=== PATIENT | male | born 1945 | race Caucasian/White ===

== ENCOUNTER 2022-12-16 19:53 | Emergency (ER) | payer MEDICARE, MEDICAID, SELFPAY ==
[2022-12-16 20:15] VITALS: BP 140/79; PULSE 82; RESP 18; TEMP 37.3; O2SAT 97; BMI 19.5
[2022-12-16 22:20] VITALS: BP 142/73; PULSE 75; RESP 16; TEMP 36.7; O2SAT 97
[2022-12-16] MEDS: AMPICILLIN/SULBACTAM 3 GM 3 GM in SODIUM CHLORIDE 0.9% 100 ML IV (23:07)
--- NOTE | 2022-12-16 23:22 | ED.WOUNDLAC ---
HPI - Wound/Laceration General Chief Complaint: Wound/Laceration Stated Complaint: SOB Time Seen by Provider: 12/16/22 21:36 Source: patient and old records reviewed Mode of arrival: Wheelchair History of Present Illness HPI narrative: Patient is a 77-year-old male who presents today from rehab facility after being frightened. He had a complicated course at [facility] he had a thoracotomy right middle lobe lobectomy, intercostal nerve blocks with CT surgery, bone abscess and pneumonia. He is to be on 4-6 weeks IV antibiotics Unasyn 3 g Q 6 hours. Arrangements have been made for him to go to [facility] [place] [facility]. He was there for an hour and demanded that he leave and call the police. He has no fever chills cough shortness of breath. He has no suicidal or homicidal ideations. He just stated that there was a man there who made him feel generally unsafe. Related Data Home Medications Medication Instructions Recorded Confirmed venlafaxine 225 mg tablet,extended 225 mg PO QDAY ##0 11/05/16 12/16/22 release 24 hr ampicillin-sulbactam 3 gram 3 g IV Q6H 12/16/22 12/16/22 intravenous piggyback bupropion HCl 150 mg 24 hr tablet, 150 mg PO DAILY 12/16/22 12/16/22 extended release gabapentin 100 mg tablet 100 mg PO TID 12/16/22 12/16/22 levothyroxine 25 mcg tablet 25 mcg PO DAILY 12/16/22 12/16/22 lidocaine 4 % topical patch 1 patch topical DAILY PRN Pain 12/16/22 12/16/22 (Lidocaine Pain Relief) (Scale Score 1-3) metoprolol tartrate 25 mg tablet 12.5 mg PO BID 12/16/22 12/16/22 oxycodone 5 mg capsule 5 mg PO Q6H PRN Pain (Scale Score 12/16/22 12/16/22 7-10) sennosides 8.6 mg-docusate sodium 1 tab-cap PO BID 12/16/22 12/16/22 50 mg capsule (Senna Plus) zinc sulfate 50 mg zinc (220 mg) 50 mg PO DAILY 12/16/22 12/16/22 capsule Allergies Allergy/AdvReac Type Severity Reaction Status Date / Time No Known Drug Allergies Allergy Verified 12/16/22 21:19 Review of Systems Review of Systems ROS Unobtainable: All systems reviewed & are unremarkable except as noted in HPI and below Patient History Social History Smoking Status: Never smoker Smoking Status: Never smoker Substance Use Type: marijuana Exam Initial Vital Signs Initial Vital Signs: Vital Signs Temperature 99.2 F 12/16/22 20:15 Pulse Rate 82 12/16/22 20:15 Respiratory Rate 18 12/16/22 20:15 Blood Pressure 140/79 12/16/22 20:15 Pulse Oximetry 97 12/16/22 20:15 Oxygen Delivery Method Room Air 12/16/22 20:15 GENERAL: Thin chronically ill 77-year-old male HEENT: Head atraumatic,EOMI, pupils reactive, face symmetric, [moist] mucous membranes CARDIOVASCULAR: Regular rate and rhythm without murmurs, rubs or gallops. RESPIRATORY: Breath sounds equal bilaterally, no wheezes rales or rhonchi. ABDOMEN: Soft, nontender. Normoactive bowel sounds all 4 quadrants. No guarding or rebound. EXTREMITIES: Normal range of motion, no clubbing or edema. Neurovascularly intact NEUROLOGICAL: Alert and oriented x4. SKIN: Incision site noted on right chest no erythema no dehiscence nontender Course Orders Ordered: ED Orders 12/16/22 21:38 Consult to [employer] - Chief Communications Officer Stat Discontinued Medications Ampicillin Sodium/Sulbactam (Sodium 3 gm/ Sodium Chloride) 100 mls @ 200 mls/hr IV NOW JEFFRY Last Infusion: 12/17/22 00:29 Dose: 0 mls/hr Documented By: Admin: 12/16/22 23:07 Dose: 200 mls/hr Documented By: Oxycodone HCl (Oxycodone Ir 5 Mg Tablet) 5 mg PO NOW ONE Stop: 12/16/22 23:15 Last Admin: 12/16/22 23:24 Dose: 5 mg Documented By: Vital Signs Vital signs: Vital Signs - 8 hr 12/16/22 22:20 12/17/22 00:44 Temperature 98.1 F Pulse Rate 75 80 Respiratory Rate 16 18 Blood Pressure 142/73 H 153/77 H Pulse Oximetry 97 95 Oxygen Delivery Method Room Air Room Air MDM - Wound/Laceration MDM Narrative Medical decision making narrative: Patient is 77-year-old male with history of lung abscess and ammonia now requiring 4-6 weeks of IV antibiotics. Who was discharged from another hospital today and went to rehab facility immediately arrived and did not like it. He left and came here. He denies suicidal homicidal ideations. He is given 1 dose of Unasyn. He is afebrile and vitals are stable. Long discussion with him strongly encourage him to return back to the rehab facility where he can continue to get his IV antibiotics. However he does not feel safe there despite removing the person who was making him feel unsafe. At this time he would like to go to a hotel and ultimately back to the [facility]. He understands that setting up IV antibiotics may be extremely difficult for him. Discharge Plan Departure Patient Disposition: Home Clinical Impression: Abscess of lung Instructions: DI for Wound Infection Activity Restrictions/Additional Instructions: You are supposed to get Unasyn 3 g every 6 hours for 4-6 weeks ending on either January 07 or January 21. It is strongly recommended that you return [facility] you can continue your physical strengthening and IV antibiotics. Please follow-up with your doctors as soon as possible Return to emergency department if you should have increasing shortness of breath, fevers pain or any new or worsening symptoms Prescriptions: No Action venlafaxine 225 MG tablet extended release 24hr 225 mg PO QDAY Qty: 0 lidocaine [Lidocaine Pain Relief] 4 % Adhesive Patch,Medicated 1 patch TOPICAL DAILY PRN (Reason: Pain (Scale Score 1-3)) levothyroxine 25 mcg tablet 25 mcg PO DAILY oxycodone 5 mg Capsule 5 mg PO Q6H PRN (Reason: Pain (Scale Score 7-10)) ampicillin-sulbactam 3 gram Piggyback 3 g IV Q6H Rx Instructions: rx x 22 days from 12/16/22 bupropion HCl 150 mg tablet extended release 24 hr 150 mg PO DAILY metoprolol tartrate 25 mg Tablet 12.5 mg PO BID gabapentin 100 mg Tablet 100 mg PO TID zinc sulfate 50 mg zinc (220 mg) Capsule 50 mg PO DAILY Rx Instructions: x 7 days, start 12/16/22 Senna Plus 8.6-50 mg Capsule 1 tab-cap PO BID Referrals: Suyapa Perez MD [Primary Care Provider] - Stand Alone Forms: Patient Portal/API
[2022-12-16] MEDS: OXYCODONE IR 5 MG TABLET PO (23:24)
[2022-12-17 00:44] VITALS: BP 153/77; PULSE 80; RESP 18; O2SAT 95
== END 2022-12-17 00:48 | disposition home or self-care (01) ==
PROVIDERS: Emergency Provider Emergency Medicine; PCP Family Medicine
DX: J85.2 Abscess of lung without pneumonia (principal)
CPT/HCPCS: 96365; 99284; J0295